=== PATIENT | male | born 2000 | race Caucasian/White ===

== ENCOUNTER 2022-01-21 17:10 | Emergency (ER) | payer OTHER, SELFPAY ==
--- NOTE | ~2022-01-21 | XR_ITS ---
XR finger 2nd LT min 2V DATE: 01/21/2022 17:45 INDICATION: Nail through the distal second digit and fingernail TECHNIQUE: 3 views COMPARISON: None FINDINGS: There is a 23 mm long radiopaque nail passing obliquely medially in anteroposterior directi on through the distal lateral soft tissues of the second digit, passing along the lateral aspect of t he tuft of the distal phalanx. No definite fracture is evident. IMPRESSION: Radiopaque foreign body; no definite fracture noted Reviewed, dictated and finalized at location A.
--- NOTE | ~2022-01-21 | XR_ITS ---
XR finger 2nd LT min 2V DATE: 01/21/2022 19:46 INDICATION: Nail foreign body removed TECHNIQUE: 3 views COMPARISON: None FINDINGS: No radiopaque soft tissue foreign body or subcutaneous emphysema is noted. No fracture or d islocation, periosteal reaction or bone destruction. IMPRESSION: Complete removal radial opaque foreign body; no fracture or dislocation Reviewed, dictated and finalized at location A. IMPRESSION: Complete removal radial opaque foreign body; no fracture or disloca tion
--- NOTE | 2022-01-21 17:17 | ED.WOUNDLAC ---
HPI - Wound/Laceration General Chief Complaint: Wound/Laceration Stated Complaint: nail in left index finger Time Seen by Provider: 01/21/22 17:14 Source: patient Mode of arrival: ambulatory Limitations: no limitations History of Present Illness HPI narrative: Patient is a 21-year-old male who presents to the ED with report of a metal nail through his L 2nd finger. Patient reports he was working with a nail gun approximately 1.5 hours ago when he accidentally shot a nail through his ventral L 2nd finger, through the fingernail. No significant bleeding at the time of the injury. C/o pain to L 2nd finger. No numbness/tingling, weakness. No fevers, chills. No other injuries. Patient is R hand dominant. Tetanus is UTD, 3 yrs ago. Related Data Allergies Allergy/AdvReac Type Severity Reaction Status Date / Time No Known Allergies Allergy Verified 01/21/22 17:39 Review of Systems Review of Systems: CONSTITUTIONAL: Denies fever, chills. SKIN: Reports nail through L 2nd digit. Denies bleeding. MUSCULOSKELETAL: Reports pain to L 2nd digit. NEUROLOGIC: Denies numbness, tingling, or weakness. All systems reviewed & are unremarkable except as noted in HPI and below PMFSH Past Medical History Medical History (Updated 01/21/22 @ 18:05 by Marquita Mott PA-C) Epilepsy Surgical History Surgical History (Updated 01/21/22 @ 17:37 by Marquita Mott PA-C) No pertinent past surgical history Social History Social History (Updated 01/21/22 @ 17:37 by Marquita Mott PA-C) Smoking status: Never smoker Exam Narrative: GENERAL: Well appearing, well-nourished, non-toxic, in no acute distress. HEAD: Normocephalic, atraumatic. NECK: Supple. No adenopathy, no masses. RESPIRATORY: Airway patent, respirations nonlabored. CARDIOVASCULAR: Regular rate and rhythm without murmurs, rubs, or gallops. Radial pulses 2+ and equal bilaterally. MUSCULOSKELETAL: Moves all extremities. Strength/ROM intact without TTP. 2cm nail through ventral distal L 2nd digit, exiting through nail bed of L 2nd digit. No bleeding at this time. SKIN: Warm, dry. NEURO: A&O X3. Speech clear. Cranial nerves II-XII grossly intact. Steady gait. No ataxic movements. PSYCHIATRIC: Appropriate mood and affect. Normal interaction. Course Vital Signs Vital signs: Vital Signs Temperature 100.3 F H 01/21/22 17:31 Pulse Rate 126 H 01/21/22 17:31 Respiratory Rate 18 01/21/22 17:31 Blood Pressure 175/112 H 01/21/22 17:31 Pulse Oximetry 100 01/21/22 17:31 Temperature 98.7 F 01/21/22 18:08 Pulse Rate 80 01/21/22 20:37 Respiratory Rate 18 01/21/22 20:37 Blood Pressure 160/80 H 01/21/22 20:37 Pulse Oximetry 98 01/21/22 20:37 Procedures Foreign Body Removal Foreign Body #1: Foreign Body Removal Date: 01/21/22 Foreign Body Removal Time: 18:25 Time Out Performed: yes Site: left and hand (L 2nd digit) Description of foreign body: other (metal nail) Sedation/Analgesia: none Technique: manual removal Confirmed by:: direct visualization and radiograph Complications: none and bleeding (minimal) Post-procedure exam: awake, alert, normal BP, normal HR and normal O2 sat Neurovascular: normal distal pulse, normal capillary fill, distal light touch sensation intact, distal motor function normal, no signs of compartment syndrome and no change from pre-procedure Nerve Block Nerve Block 1: Nerve block date: 01/21/22 Nerve block time: 18:20 Time out performed: Yes Local Anesthetic: lidocaine 1% Amount of anesthesia used (mL): 5 Side: left Nerve Blocks: digital (2nd finger) Procedure Successful: Yes Patient Tolerated Procedure: well Complications: none MDM - Wound/Laceration MDM Narrative Medical decision making narrative: Patient presented to ED after sustaining a nail through his left second digit. Exiting wound through left s
[2022-01-21 17:31] VITALS: BP 175/112; PULSE 126; RESP 18; TEMP 37.9; O2SAT 100
--- NOTE | 2022-01-21 17:39 | PC.NURSE ---
Radiology at bedside for xray.
[2022-01-21 18:08] VITALS: TEMP 37.1
[2022-01-21] MEDS: ceFAZolin SODIUM 1 GM VIAL IM (18:41)
[2022-01-21] MEDS: WATER, STERILE FOR INJECTION 10 ML VIAL XX (18:59)
--- NOTE | 2022-01-21 19:16 | PC.NURSE ---
Patient report given to PATRIZIA Hurt. All questions answered and care of patient transferred.
[2022-01-21 20:37] VITALS: BP 160/80; PULSE 80; RESP 18; O2SAT 98
== END 2022-01-21 20:38 | disposition home or self-care (01) ==
PROVIDERS: Emergency Provider Emergency Medicine
DX: S61.341A Puncture wound with foreign body of left index finger with damage to nail, initial encounter (principal); G40.909 Epilepsy, unspecified, not intractable, without status epilepticus; W29.4XXA Contact with nail gun, initial encounter
CPT/HCPCS: 73140; 90471; 96372; 99283; J0690

== ENCOUNTER 2025-05-19 10:48 | Emergency (ER) | payer OTHER, SELFPAY ==
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
[2025-05-19 10:50] VITALS: BP 130/99; PULSE 99; RESP 16; TEMP 36.7; O2SAT 99
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
[2025-05-19] MEDS: CEPHALEXIN 500 MG CAPSULE PO (12:42)
[2025-05-19] MEDS: CYCLOBENZAPRINE HCL 10 MG TABLET PO (12:42)
[2025-05-19] MEDS: IBUPROFEN 600 MG TABLET PO (12:42)
[2025-05-19 12:45] VITALS: BP 130/80; PULSE 70; RESP 16; O2SAT 97
== END 2025-05-19 12:45 | disposition home or self-care (01) ==
PROVIDERS: Emergency Provider Emergency Medicine
DX: S01.81XA Laceration without foreign body of other part of head, initial encounter (principal); S80.01XA Contusion of right knee, initial encounter; G40.909 Epilepsy, unspecified, not intractable, without status epilepticus; V49.40XA Driver injured in collision with unspecified motor vehicles in traffic accident, initial encounter
CPT/HCPCS: 12013; 70450; 72125; 73562; 99284; A9270